=== PATIENT | female | born 1970 | race Caucasian/White ===

== ENCOUNTER 2016-10-25 11:13 | Emergency (ER) | payer OTHER | END 2016-10-25 12:15 | disposition home or self-care (01) | LOC: CED 11:13 | DX: M54.5 Low back pain (principal); F17.210 Nicotine dependence, cigarettes, uncomplicated; Z85.05 Personal history of malignant neoplasm of liver | CPT/HCPCS: 96372; 99283; J1885 ==

== ENCOUNTER 2016-10-28 11:02 | Emergency (ER) | payer OTHER ==
--- NOTE | ~2016-10-28 | CR181 ---
[facility] A Service of [facility] RADIOLOGY TEXT RESULTS PATIENT: EDWIGE FLOREZ LOCATION: [place] : 74 UNIT #: [id number] AGE: [address]: Latricia Kaye SEX: F ORDER DR: [id number] [place], [place] [address] [id number] MR#: [id number] Acc #: [id number] NAME: EDWIGE FLOREZ : 1970 SEX: F STUDY DATE/TIME: 10/28/2016 14:25 UNIT: [place] ROOM: STUDY DESCRIPTION: CR Lumbar Spine 2 or 3 Views Attending Physician: Latricia Kaye Pa-C Ordering Physician: Latricia Kaye Pa-C Primary Care Physician: No Primary Care Physician MEDICAL IMAGING REPORT This report is preliminary unless electronic signature is present EXAM 3 views lumbar spine, 10/28/2016. HISTORY Back pain radiating down both legs for 3 days. No known injury. COMPARISON None. FINDINGS There is moderate diminished disc height at L5-S1 with advanced right L5-S1 facet arthropathy. No acute lumbar spine fracture or subluxation is seen. No osteolytic or osteoblastic abnormalities are identified. No sacroiliac joint diastasis. IMPRESSION 1. Advanced right L5-S1 facet arthropathy with moderate L5-S1 diminished disc height. 2. No acute lumbar spine findings. Dictated by... Marta Jose M.D. THIS IS AN ELECTRONICALLY VERIFIED REPORT Marta Jose M.D. at 10/29/2016 2:01 PM CORINE/payal TD: 10/28/2016 18:44 JOB #: [id number] MEDICAL IMAGING REPORT [facility] A Service [facility] RADIOLOGY TEXT RESULTS PATIENT: EDWIGE FLOREZ LOCATION: [facility] : 74 UNIT #: [id number] AGE: [address]: Latricia Kaye SEX: F ORDER DR: Page 1 of 1 COPY
[2016-10-28 14:39] LABS: URINE SOURCE CLEAN CATCH
[2016-10-28 14:49] LABS: URINE APPEARANCE CLOUDY; URINE BILIRUBIN NEG (NEG); URINE BLOOD NEG (NEG); URINE COLOR DK YELLOW; URINE GLUCOSE NEG (NEG); URINE KETONE NEG (NEG); URINE LEUKOCYTE ESTERASE 2+ (NEG); URINE NITRATE NEG (NEG); URINE PH 6.5 (5-8); URINE PROTEIN NEG (NEG); URINE SPECIFIC GRAVITY 1.018 (1.003-1.035)
[2016-10-28 14:52] LABS: CULTURE INDICATED? YES; URBCS1 AUWI 0-2 /[HPF] (0-2); URINE BACTERIA AUWI 1+ (NEGATIVE); URINE SQUAMOUS EPITHELIAL CELL MANY /[HPF]
[2016-10-28 16:11] LABS: AMPHETAMINE POS (NEG); BARBITURATES NEG (NEG); BENZODIAZEPINES NEG (NEG); COCAINE NEG (NEG); MARIJUANA POS (NEG); OPIATES POS (NEG); TRICYCLIC ANTIDEPRESSANTS POS (NEG); U METHADONE NEG (NEG)
== END 2016-10-28 16:40 | disposition home or self-care (01) ==
LOC: CED 11:02 → CFTX 11:02
PROVIDERS: Physician Assistant Medical
DX: M47.896 Other spondylosis, lumbar region (principal); F17.210 Nicotine dependence, cigarettes, uncomplicated
CPT/HCPCS: 72100; 80307; 81003; 84703; 87086; 96372; 99284; J1885